=== PATIENT | female | born 1990 ===

== ENCOUNTER 2018-10-20 08:03 | Outpatient (CLI) | payer BC ==
--- NOTE | 2018-10-20 09:59 | ULT ---
RIGHT BREAST ULTRASOUND: HISTORY: Palpable mass in the 9 o'clock position of the right breast. TECHNIQUE: Multiplanar, ventura scale, and color Doppler images were obtained in a right breast ultrasound. FINDINGS: Normal-appearing breast parenchyma is seen at the area of palpable abnormality. No cyst or solid mas s is seen. No suspicious shadowing is present. IMPRESSION: BIRADS category 1 - negative. Annual screening mammography is recommended at the age of 40. POS: GABRIELA
== END 2018-10-20 08:04 | disposition home or self-care (01) ==
LOC: BICULT 08:03
PROVIDERS: ATTEND Internal Medicine
DX: N63.13 Unspecified lump in the right breast, lower outer quadrant (principal)